=== PATIENT | female | born 1970 | race Caucasian/White ===

== ENCOUNTER → 2016-08-21 | Outpatient (CLI) | payer OTHER | END | disposition home or self-care (01) | LOC: CFH 08:35 | PROVIDERS: ATTEND Family Medicine | DX: R92.2 Inconclusive mammogram (principal) | CPT/HCPCS: 76641; G0204 ==

== ENCOUNTER → 2018-02-12 | Outpatient (CLI) | payer OTHER | END | disposition home or self-care (01) | LOC: CFH 09:42 | PROVIDERS: ATTEND Family Medicine | DX: Z12.31 Encounter for screening mammogram for malignant neoplasm of breast (principal) | CPT/HCPCS: 77067 ==

== ENCOUNTER → 2019-05-12 | Outpatient (CLI) | payer OTHER | END | disposition home or self-care (01) | LOC: CFH 13:43 | PROVIDERS: ATTEND Family Medicine | DX: Z12.31 Encounter for screening mammogram for malignant neoplasm of breast (principal) | CPT/HCPCS: 77063; 77067 ==

== ENCOUNTER 2019-11-12 11:47 | Day surgery (SDC) | payer OTHER ==
[~2019-11-12] VITALS: Ht 167.6 cm; Wt 68.5 kg
[2019-11-12] MEDS ORDERED: CHLORHEXIDINE 15 ML UDC MM STA (12:22)
[2019-11-12] MEDS ORDERED: LIDOCAINE-MPF 1%, 2ML INFIL STA (12:22)
[2019-11-12] MEDS ORDERED: LACTATED RINGERS 1,000 ML IV SCH (12:22)
[2019-11-12 12:24] VITALS: BP 111/74
[2019-11-12 12:40] LABS: HCG UR SG 1.019 (1.003-1.030)
[2019-11-12 12:46] VITALS: BP 111/74
[2019-11-12] MEDS ORDERED: MIDAZOLAM 1 MG/ML, 2ML ONE (12:48)
[2019-11-12] MEDS ORDERED: FENTANYL PF 100 MCG/2ML ONE (12:48)
[2019-11-12] MEDS ORDERED: no meds per pt (12:50)
[2019-11-12] MEDS ORDERED: KETOROLAC 30 MG/1 ML ONE (13:43)
[2019-11-12] MEDS ORDERED: ONDANSETRON 2MG/ML, 2ML ONE (14:27)
[2019-11-12] MEDS ORDERED: DEXAMETHASONE 4 MG/ML, 1ML ONE (14:27)
[2019-11-12] MEDS ORDERED: CEFAZOLIN 1,000 MG ONE (14:27)
[2019-11-12] MEDS ORDERED: LIDOCAINE-MPF 2% ,5ML ONE (14:27)
[2019-11-12] MEDS ORDERED: PROPOFOL 10 MG/ML, 20ML ONE (14:27)
[2019-11-12] MEDS ORDERED: BUPIVACAINE/PF 0.5% ONE (14:27)
[2019-11-12] MEDS ORDERED: HYDROmorphone 1 MG/ML, 1ML INJ IVPush PRN (14:30)
[2019-11-12] MEDS ORDERED: ALBUTEROL SULFATE 2.5 MG/3 ML NPPB PRN (14:30)
[2019-11-12] MEDS ORDERED: ACETAMINOPHEN 325 MG TABLET PO PRN (14:30)
[2019-11-12] MEDS ORDERED: hydrALAzine 20 MG/ML, 1ML IV PRN (14:30)
[2019-11-12] MEDS ORDERED: FENTANYL PF 100 MCG/2ML IV PRN (14:30)
[2019-11-12] MEDS ORDERED: OXYcodone 5 MG/5 ML ORAL.SOL UDC PO PRN (14:30)
[2019-11-12] MEDS ORDERED: LORazepam 2 MG/ML, 1ML IVPush PRN (14:30)
[2019-11-12] MEDS ORDERED: LABETALOL 5MG/ML, 20ML IV PRN (14:30)
[2019-11-12] MEDS ORDERED: PROMETHAZINE 25 MG/ML, 1ML IVPush PRN (14:30)
[2019-11-12] MEDS ORDERED: MEPERIDINE/PF 25MG/0.5ML IVPush PRN (14:30)
[2019-11-12] MEDS ORDERED: ACETAMINOPHEN 650 MG/20.3 ML UDC ONE (15:42)
== END 2019-11-12 17:30 | disposition home or self-care (01) ==
LOC: OUT 11:47
PROVIDERS: ATTEND Orthopaedic Surgery Foot and Ankle Surgery
DX: S82.841A Displaced bimalleolar fracture of right lower leg, initial encounter for closed fracture (principal); Z11.59 Encounter for screening for other viral diseases; S93.439A Sprain of tibiofibular ligament of unspecified ankle, initial encounter; X58.XXXA Exposure to other specified factors, initial encounter; Y93.89 Activity, other specified; Y92.89 Other specified places as the place of occurrence of the external cause; Y99.8 Other external cause status; Z79.899 Other long term (current) drug therapy; Z82.49 Family history of ischemic heart disease and other diseases of the circulatory system; Z72.89 Other problems related to lifestyle
CPT/HCPCS: 27814; 29898; 36415; 64447; 73600; 76000; 81025; 87635; C1713; J0690; J1100; J1885; J2250; J2405; J2704; J3010; J7120